=== PATIENT | female | born 1980 | race African-American/Black ===

== ENCOUNTER 2016-08-21 13:14 | Emergency (ER) | payer OTHER ==
--- NOTE | ~2016-08-21 | EKG ---
PATIENT: RANDELL ANDERSON UNIT #: [id number] Ventricular Rate: 75 BPM Atrial Rate: 75 BPM P-R Interval: 152 ms QRS Duration: 82 ms Q-T Interval: 424 ms QTC Calculation(Bezet): 473 ms P [place]: 10 degrees Calculated R [place]: 28 degrees Calculated T [place]: 20 degrees Diagnosis Line: Normal sinus rhythm Diagnosis Line: Normal ECG Diagnosis Line: Diagnosis Line: Confirmed by REBEKA SMILEY MD ([id number]) on 08/22/2016 Diagnosis Line: 6:36:00 PM INTERPRETING MD: SHERICE NICHOLE
--- NOTE | ~2016-08-21 | CR72 ---
[facility] A Service of [facility] & [facility] RADIOLOGY TEXT RESULTS PATIENT: RANDELL ANDERSON LOCATION: [facility] : 76 UNIT #: [id number] AGE: [address]: Marques Lemus DO SEX: F ORDER DR: [id number] [facility] [address] [place], [place] [address] [id number] E MR#: [id number] Acc #: [id number] NAME: RANDELL ANDERSON : 1980 SEX: F STUDY DATE/TIME: 08/21/2016 13:52 UNIT: [facility] ROOM: STUDY DESCRIPTION: CR Chest Single View Portable Attending Physician: Marques Lemus D.O. Ordering Physician: Caesar Blanco M.D. Primary Care Physician: [facility], [facility]. MEDICAL IMAGING REPORT This report is preliminary unless electronic signature is present EXAM Chest one-view, 08/21/2016 13:52 hours HISTORY 36-year-old with complaint of chest pain and shortness of air today. COMPARISON 03/14/2014 FINDINGS Single upright portable view demonstrates normal cardiac, mediastinal and hilar contours. The lungs are clear. No effusion seen. IMPRESSION No acute cardiopulmonary findings. COMMENT The patient's prior chest radiographs are under the name Garth Holliday. The technologist confirmed that the patient has had a name change and the comparison is to her previous films. Dictated by... Tnaya Martinez M.D. THIS IS AN ELECTRONICALLY VERIFIED REPORT Tanya Martinez M.D. at 08/21/2016 5:50 PM Gilberto TD: 08/21/2016 16:12 JOB #: [id number] MEDICAL IMAGING REPORT Page 1 of 1 COPY
--- NOTE | ~2016-08-21 | CT16 ---
[facility] A Service of [facility] RADIOLOGY TEXT RESULTS PATIENT: RANDELL ANDERSON LOCATION: [facility] : 76 UNIT #: [id number] AGE: [address]: Marques Lemus DO SEX: F ORDER DR: [id number] [facility] [address] [place], [place] [address] [id number] E MR#: [id number] Acc #: [id number] NAME: RANDELL ANDERSON : 1980 SEX: F STUDY DATE/TIME: 08/21/2016 15:50 UNIT: [facility] ROOM: STUDY DESCRIPTION: CT Angio Chest for PE Attending Physician: Marques Lemus D.O. Ordering Physician: Caesar Blanco M.D. [facility] REPORT This report is preliminary unless electronic signature is present EXAM CT pulmonary angiography, 08/21/2016 HISTORY Hurts to breathe, short of air this a.m. D-dimer 1126. TECHNIQUE CT pulmonary angiography performed with intravenous administration 80 mL Isovue-370. This CT exam was performed with one or more of the following radiation dose reduction techniques: Automatic exposure control, adjustment of mA and/or kV according to patient size, and iterative reconstruction. FINDINGS Thyroid unremarkable. No axillary, mediastinal or hilar adenopathy. Heart [id number]-rh-dqhre limits of normal in size. Stable. No pleural effusions. Visualized portions of liver, gallbladder, spleen, pancreas, adrenal glands, kidneys, esophagus, stomach and colon unremarkable. Minimal dependent atelectasis in the lower lobes. The lungs are otherwise clear. Pulmonary arteries are well opacified. No PE. No aortic aneurysm or dissection. The visualized aortic branch vessels are patent. Bony structures unremarkable. IMPRESSION 1. No PE. 2. No aortic aneurysm or dissection. Visualized aortic branch vessels patent. 3. Minimal dependent atelectasis in the lungs. Lungs otherwise clear. 4. Visualized upper abdomen shows no acute abnormality. [facility] A Service of [facility] RADIOLOGY TEXT RESULTS PATIENT: RANDELL ANDERSON LOCATION: [facility] : 76 UNIT #: [id number] AGE: [address]: Marques Lemus DO SEX: F ORDER DR: Dictated by... Jeremy Rudd M.D. THIS IS AN ELECTRONICALLY VERIFIED REPORT Jeremy Rudd M.D. at 08/22/2016 8:25 AM ANÍBAL/riccardo TD: 08/21/2016 20:08 JOB #: [id number] MEDICAL IMAGING REPORT Page 1 of 1 COPY
[~2016-08-21 13:14] MED LIST: ALBUTEROL17 GM INH; AZITHROMYCIN250 MG PO; BACTRIM DS TABL1 TAB; BENZONATATE PO; CIPRO PO; DOXYCYCLINE PO; DOXYCYCLINE150 MG PO; FLAGYL PO; IBUPROFEN800 MG PO; ORUDIS75 M1 DOB; PHENERGAN25 M1 DOB; PYRIDIUM PO; TESSALON200 MG PO; ZYRTEC10 M2 PO
[2016-08-21 13:59] LABS: BASOPHIL# 0.1 X10e3 (0-0.3); EOSINOPHIL# 0.2 X10e3 (0-0.7); EOSINOPHIL% 2.7 % (0.0-7.0); HEMATOCRIT 36.9 % (35.0-45.0); HEMOGLOBIN 11.6 gm/dL (12.0-16.0); LYMPHOCYTE# 1.8 X10e3 (1.0-3.5); LYMPHOCYTE% 30.7 % (17.0-45.0); MEAN CELL VOLUME 82.5 FL (83-96); MEAN CORPUSCULAR HGB CONC 31.5 g/dL (30-36); MEAN PLATELET VOLUME 8.9 FL (6.5-11.5); MONOCYTE# 0.4 X10e3 (0-1.0); MONOCYTE% 6.3 % (3.0-12.0); NEUTROPHIL# 3.6 X10e3 (1.5-7.1); NEUTROPHIL% 59.3 % (40-75); PLATELET COUNT 278 X10e3 (140-420); RED BLOOD COUNT 4.48 X10e (3.90-5.30); RED CELL DISTRIBUTION WIDTH 17.4 % (11.0-15.5)
[2016-08-21 14:00] LABS: DIFF IND NO
[2016-08-21 14:10] LABS: PARTIAL THROMBOPLASTIN TIME 25.9 SECONDS (23.5-31.3)
[2016-08-21 14:11] LABS: POC - CKMB <1.0 ng/mL (0.0-7.9); POC - TROPONIN <0.05 ng/mL (<=0.05)
[2016-08-21 14:29] LABS: ALBUMIN SERUM 3.8 g/dL (3.5-5.0); ALKALINE PHOSPHATASE 73 U/L (32-92); ALT (SGPT) 14 U/L (10-40); AST (SGOT) 20 U/L (10-42); BILIRUBIN,TOTAL 0.5 mg/dL (0.2-2.0); BLOOD UREA NITROGEN 11 mg/dL (9-23); BUN/CREATININE RATIO 15.71; CALCIUM SERUM 8.7 mg/dL (8.4-10.2); CARBON DIOXIDE 24 mmol/L (22-31); CHLORIDE 107 mmol/L (100-111); CREATININE SERUM 0.7 mg/dL (0.6-1.4); GLOM FILT RATE Estimated 127.4 mL/min (>60); GLUCOSE FASTING 106 mg/dL (70-110); POTASSIUM 3.2 mmol/L (3.5-5.1); PROTEIN TOTAL SERUM 7.2 g/dL (6.0-8.3); SODIUM 139 mmol/L (135-145)
[2016-08-21 14:30] LABS: BILIRUBIN, DIRECT <0.1 mg/dL (0.0-0.2); BILIRUBIN,INDIRECT 0.4 mg/dL (0.0-0.9)
== END 2016-08-21 18:08 | disposition home or self-care (01) ==
LOC: CED 13:14
PROVIDERS: Emergency Medicine
DX: R09.1 Pleurisy (principal); J45.909 Unspecified asthma, uncomplicated; F17.200 Nicotine dependence, unspecified, uncomplicated
CPT/HCPCS: 36415; 71010; 71275; 80048; 80076; 82553; 84484; 84703; 85025; 85379; 85610; 85730; 93005; 96374; 99284; J1885; Q9967

== ENCOUNTER 2016-10-22 17:33 | Emergency (ER) | payer OTHER ==
[~2016-10-22] VITALS: Ht 167.6 cm; Wt 68.9 kg
[2016-10-22 18:26] LABS: URINE SOURCE CLEAN CATCH
[2016-10-22 18:39] LABS: URINE APPEARANCE CLEAR; URINE BILIRUBIN NEG (NEG); URINE BLOOD TRACE (NEG); URINE COLOR YELLOW; URINE GLUCOSE NEG (NEG); URINE KETONE NEG (NEG); URINE LEUKOCYTE ESTERASE 3+ (NEG); URINE NITRATE NEG (NEG); URINE PROTEIN NEG (NEG); URINE SPECIFIC GRAVITY 1.018 (1.003-1.035); URINE UROBILINOGEN 0.2 MG/DL (NEG)
[2016-10-22 18:42] LABS: CULTURE INDICATED? YES; U HYALINE CASTS AUWI 0-2 /[LPF]; URINE BACTERIA AUWI 2+ (NEGATIVE); URINE SQUAMOUS EPITHELIAL CELL MOD /[HPF]
[2016-10-25 00:33] LABS: CHLAMYDIA TRACH Not Detected (Not Detected); N GONOR Not Detected (Not Detected)
== END 2016-10-22 18:57 | disposition home or self-care (01) ==
LOC: CED 17:33 → CFTX 17:33 → CED 18:28 → CFTX 18:57
PROVIDERS: Physician Assistant Medical
DX: B37.3 Candidiasis of vulva and vagina (principal); J45.909 Unspecified asthma, uncomplicated; F17.210 Nicotine dependence, cigarettes, uncomplicated; Z98.890 Other specified postprocedural states; Z88.8 Allergy status to other drugs, medicaments and biological substances
CPT/HCPCS: 81003; 84703; 87086; 87491; 87591; 87808; 87905; 99283

== ENCOUNTER 2016-11-19 14:28 | Emergency (ER) | payer OTHER ==
[~2016-11-19] VITALS: Ht 167.6 cm; Wt 68.5 kg
[2016-11-19 14:46] LABS: URINE SOURCE CLEAN CATCH
[2016-11-19 14:50] LABS: URINE APPEARANCE CLEAR; URINE BILIRUBIN NEG (NEG); URINE BLOOD NEG (NEG); URINE COLOR YELLOW; URINE GLUCOSE NEG (NEG); URINE KETONE NEG (NEG); URINE LEUKOCYTE ESTERASE 2+ (NEG); URINE NITRATE NEG (NEG); URINE PROTEIN NEG (NEG); URINE SPECIFIC GRAVITY 1.017 (1.003-1.035); URINE UROBILINOGEN 0.2 MG/DL (NEG)
[2016-11-19 14:53] LABS: URINE BACTERIA AUWI NEG (NEGATIVE); URINE SQUAMOUS EPITHELIAL CELL OCC /[HPF]
[2016-11-19 15:02] LABS: CULTURE INDICATED? NO
[2016-11-22 07:48] LABS: CHLAMYDIA TRACH Not Detected (Not Detected); N GONOR Not Detected (Not Detected)
== END 2016-11-19 16:25 | disposition home or self-care (01) ==
LOC: CFTX 14:28 → CED 14:28 → CFTX 15:37
PROVIDERS: Physician Assistant
DX: B37.3 Candidiasis of vulva and vagina (principal); J45.909 Unspecified asthma, uncomplicated; F31.9 Bipolar disorder, unspecified; F17.200 Nicotine dependence, unspecified, uncomplicated; Z88.8 Allergy status to other drugs, medicaments and biological substances
CPT/HCPCS: 81003; 84703; 87220; 87491; 87591; 87808; 87905; 99283